=== PATIENT | female | born 1945 ===

== ENCOUNTER 2017-07-28 12:19 | Inpatient (IN) ==
[2017-07-28 13:14] LABS: Basophils % 0.5 % (0.0-0.8); Eosinophils # 0.1 10*3/uL (0.0-0.87); Eosinophils % 1.3 % (0.00-10.9); Hemoglobin 13.7 GM/DL (12.0-16.0); Immature Granulocytes % 0.3 %; Immature Granulocytes Absolute 0.02 #; Lymphocytes # 2.6 10*3/uL (1.4-4.0); Lymphocytes % 34.7 % (21.3-54.2); Mean Corpuscular HGB Conc 35.1 GM/DL (32-36); Mean Corpuscular Hemoglobin 30 PG (27-34); Mean Corpuscular Volume 86.1 FL (87-102); Mean Platelet Volume 10.9 FL (9.6-12.0); Monocytes # 0.5 10*3/uL (0.11-0.8); Monocytes % 6.2 % (1.7-12.7); Neutrophils # 4.3 10*3/uL (1.4-7.4); Platelet Count 208 T/CUMM (130-400); Red Blood Count 4.53 MC/CUMM (3.8-5.5); Red Cell Distribution Width 12.2 % (9.3-17.3); White Blood Count 7.6 T/CUMM (4-12)
[2017-07-28 13:23] LABS: PT Patient Result 10.2 SECS; Partial Thromboplastin Time < 21.0 SECS (0-40)
[2017-07-28 13:40] LABS: Alanine Aminotransferase 28 U/L (13-56); Albumin 2.9 G/DL (3.4-5.0); Alkaline Phosphatase 131 U/L (45-117); Aspartate Amino Transferase 27 U/L (0-37); Blood Urea Nitrogen 43 MG/DL (7-18); Calcium 9.1 MG/DL (8.5-10.1); Glucose 182 MG/DL (74-106); Osmolality,Calculated 298.1 MOS/KG (273-304); Potassium 3.5 MMOL/L (3.5-5.1); Sodium 142 MMOL/L (136-145); Total Protein 7.6 G/DL (6.4-8.3)
[2017-07-28 14:09] LABS: Apearance,Urine CLOUDY (Clear); Bacteria,Urine Many /HPF (Few); Bilirubin,Urine Negative (Negative); Blood, Urine Small mg/dL (Negative); Glucose,Urine (UA) Negative (Negative); Ketones,Urine Negative (Negative); Mucus,Urine Occasional /LPF (Occasional); Nitrite,Urine Negative (Negative); Protein,Urine 100 MG/DL; RBC,Urine 5 /HPF (0-4); Urine Color Yellow (Yellow); Urine Specific Gravity 1.016 (1.001-1.035); WBC,Urine 67 /HPF (0-6)
[2017-07-28 14:15] LABS: Barbiturates Screen,Urine Negative (Negative); Benzodiazepines Screen,Urine Negative (Negative); Cannabinoid Screen,Urine Negative (Negative); Opiate Screen,Urine Negative (Negative); Phencyclidine Screen,Urine Negative (Negative)
[2017-07-28] MEDS ORDERED: hydrALAZINE 20 MG/1 ML VIAL IV PRN (15:08)
[2017-07-28] MEDS ORDERED: ACETAMINOPHEN 325 MG TABLET PO PRN (15:09)
[2017-07-28] MEDS ORDERED: ONDANSETRON 4 MG/2 ML VIAL IV PRN (15:09)
[2017-07-28] MEDS ORDERED: MORPHINE 4 MG/1 ML VIAL IV PRN (15:09)
[2017-07-28] MEDS ORDERED: diphenhydrAMINE CAP 25 MG CAPSULE PO PRN (15:09)
[2017-07-28] MEDS ORDERED: GLUCAGON 1 MG VIAL IM PRN (15:16)
[2017-07-28] MEDS ORDERED: DEXTROSE 50% 25 GM/50 ML VIAL IV PRN (15:16)
[2017-07-28] MEDS: SODIUM CHLORIDE 0.9% 1,000 ML IV SCH (17:00)
[2017-07-28] MEDS: ASPIRIN 325 MG TABLET PO SCH (17:10)
[2017-07-28] MEDS: PANTOPRAZOLE 40 MG TABLET PO SCH (17:10)
[2017-07-28] MEDS: cefTRIAXone 1,000 MG in SYRINGE 1 EACH IV SCH (17:40)
[2017-07-28] MEDS: INSULIN LISPRO 100 UNIT/ML SUBCUT SCH (17:51)
[2017-07-28] MEDS: amLODIPine 5 MG TABLET PO SCH (17:51)
[2017-07-28] MEDS: ENOXAPARIN 30 MG/0.3 ML SYRINGE SUBCUT SCH (17:51)
[2017-07-29] MEDS: SODIUM CHLORIDE 0.9% 1,000 ML IV SCH ×3 (00:55→18:48)
[2017-07-29 05:47] LABS: Basophils # 0.1 10*3/uL (0.0-0.2); Basophils % 0.8 % (0.0-0.8); Eosinophils # 0.2 10*3/uL (0.0-0.87); Eosinophils % 2.3 % (0.00-10.9); Hemoglobin 12.7 GM/DL (12.0-16.0); Immature Granulocytes % 0.2 %; Immature Granulocytes Absolute 0.01 #; Lymphocytes # 2.7 10*3/uL (1.4-4.0); Lymphocytes % 40.8 % (21.3-54.2); Mean Corpuscular HGB Conc 34.3 GM/DL (32-36); Mean Corpuscular Hemoglobin 30 PG (27-34); Mean Corpuscular Volume 87.7 FL (87-102); Monocytes # 0.6 10*3/uL (0.11-0.8); Monocytes % 8.7 % (1.7-12.7); Neutrophils # 3.1 10*3/uL (1.4-7.4); Neutrophils % 47.2 % (38.7-73.9); Platelet Count 205 T/CUMM (130-400); Red Blood Count 4.22 MC/CUMM (3.8-5.5); Red Cell Distribution Width 12.1 % (9.3-17.3); White Blood Count 6.5 T/CUMM (4-12)
[2017-07-29 06:27] LABS: Albumin 2.7 G/DL (3.4-5.0); Bilirubin,Total 1.1 MG/DL (0.2-1.0); Calcium 8.1 MG/DL (8.5-10.1); Osmolality,Calculated 298.7 MOS/KG (273-304); Potassium 3.4 MMOL/L (3.5-5.1); Risk Ratio 2.27; Thyroid Stimulating Hormone 4.97 uIU/ml (0.358-3.74); Total Protein 6.6 G/DL (6.4-8.3)
[2017-07-29] MEDS: INSULIN LISPRO 100 UNIT/ML SUBCUT SCH ×2 (08:38→17:15)
[2017-07-29] MEDS: amLODIPine 5 MG TABLET PO SCH (08:38)
[2017-07-29] MEDS: ASPIRIN 325 MG TABLET PO SCH (08:38)
[2017-07-29] MEDS: PANTOPRAZOLE 40 MG TABLET PO SCH (08:39)
[2017-07-29] MEDS: ENOXAPARIN 30 MG/0.3 ML SYRINGE SUBCUT SCH (20:39)
[2017-07-29] MEDS: cefTRIAXone 1,000 MG in SYRINGE 1 EACH IV SCH (20:40)
[2017-07-30] MEDS: SODIUM CHLORIDE 0.9% 1,000 ML IV SCH ×2 (02:15→10:40)
[2017-07-30] MEDS: INSULIN LISPRO 100 UNIT/ML SUBCUT SCH ×2 (08:54→16:56)
[2017-07-30] MEDS: PANTOPRAZOLE 40 MG TABLET PO SCH (08:55)
[2017-07-30] MEDS: amLODIPine 5 MG TABLET PO SCH (08:55)
[2017-07-30] MEDS: ASPIRIN 325 MG TABLET PO SCH (08:55)
[2017-07-30] MEDS: APIXABAN 5 MG TABLET PO SCH ×2 (09:03→20:53)
[2017-07-30] MEDS: ATORVASTATIN 20 MG TABLET PO SCH (20:53)
[2017-07-30] MEDS: cefTRIAXone 1,000 MG in SYRINGE 1 EACH IV SCH (20:53)
[2017-07-31 05:07] LABS: Basophils # 0.1 10*3/uL (0.0-0.2); Basophils % 0.7 % (0.0-0.8); Eosinophils # 0.2 10*3/uL (0.0-0.87); Eosinophils % 3.1 % (0.00-10.9); Hematocrit 33.8 VOL% (35.7-47.0); Hemoglobin 11.4 GM/DL (12.0-16.0); Immature Granulocytes % 0.1 %; Immature Granulocytes Absolute 0.01 #; Lymphocytes # 3.2 10*3/uL (1.4-4.0); Lymphocytes % 44.2 % (21.3-54.2); Mean Corpuscular HGB Conc 33.7 GM/DL (32-36); Mean Corpuscular Hemoglobin 30 PG (27-34); Mean Platelet Volume 11.5 FL (9.6-12.0); Monocytes # 0.6 10*3/uL (0.11-0.8); Monocytes % 7.8 % (1.7-12.7); Neutrophils # 3.2 10*3/uL (1.4-7.4); Neutrophils % 44.1 % (38.7-73.9); Platelet Count 181 T/CUMM (130-400); Red Blood Count 3.84 MC/CUMM (3.8-5.5); Red Cell Distribution Width 12.1 % (9.3-17.3); White Blood Count 7.2 T/CUMM (4-12)
[2017-07-31 05:32] LABS: Calcium 7.8 MG/DL (8.5-10.1); Osmolality,Calculated 297.8 MOS/KG (273-304); Potassium 3.5 MMOL/L (3.5-5.1)
[2017-07-31] MEDS: PANTOPRAZOLE 40 MG TABLET PO SCH (09:42)
[2017-07-31] MEDS: amLODIPine 10 MG TABLET PO SCH (09:42)
[2017-07-31] MEDS: INSULIN LISPRO 100 UNIT/ML SUBCUT SCH ×4 (09:42→21:12)
[2017-07-31] MEDS: APIXABAN 5 MG TABLET PO SCH ×2 (09:42→21:11)
[2017-07-31] MEDS: LISINOPRIL 10 MG TABLET PO SCH (15:58)
[2017-07-31] MEDS: AMOXICILLIN/CLAV 875 MG TABLET PO SCH (21:11)
[2017-07-31] MEDS: ATORVASTATIN 20 MG TABLET PO SCH (21:12)
[2017-08-01] MEDS: PANTOPRAZOLE 40 MG TABLET PO SCH (08:37)
[2017-08-01] MEDS: amLODIPine 10 MG TABLET PO SCH (08:37)
[2017-08-01] MEDS: LISINOPRIL 10 MG TABLET PO SCH (08:37)
[2017-08-01] MEDS: APIXABAN 5 MG TABLET PO SCH (08:37)
[2017-08-01] MEDS: AMOXICILLIN/CLAV 875 MG TABLET PO SCH (08:37)
[2017-08-01] MEDS: INSULIN LISPRO 100 UNIT/ML SUBCUT SCH ×2 (08:37→12:12)
[2017-08-01 16:06] VITALS: BP 148/75
== END 2017-08-01 16:50 | disposition home health service (06) | DRG 65 ==
LOC: EDUNIT# → EDBD → N.ED 12:19 → N.EDINP 14:01 → N.2E 16:07
PROVIDERS: ADMIT Internal Medicine; ATTEND Internal Medicine

== ENCOUNTER 2018-07-03 12:48 | Inpatient (IN) ==
[2018-07-03] MEDS ORDERED: SODIUM CHLORIDE 0.9% 500 ML IV STA ×2 (13:05→14:50)
[2018-07-03 13:38] LABS: Basophils % 0.6 % (0.0-0.8); Eosinophils # 0.1 10*3/uL (0.0-0.87); Eosinophils % 1.8 % (0.00-10.9); Hematocrit 37.2 VOL% (35.7-47.0); Immature Granulocytes % 0.3 %; Immature Granulocytes Absolute 0.02 #; Lymphocytes # 1.8 10*3/uL (1.4-4.0); Lymphocytes % 24.5 % (21.3-54.2); Mean Corpuscular HGB Conc 32.3 GM/DL (32-36); Mean Corpuscular Volume 90.7 FL (87-102); Monocytes % 7.8 % (1.7-12.7); Platelet Count 222 T/CUMM (130-400); Red Cell Distribution Width 13.1 % (9.3-17.3); White Blood Count 7.2 T/CUMM (4-12)
[2018-07-03] MEDS ORDERED: DILTIAZEM 50 MG/10 ML VIAL IV STA (13:47)
[2018-07-03 13:53] LABS: INR 0.9; PT Patient Result 10.2 SECS; Partial Thromboplastin Time 23.2 SECS (0-40)
[2018-07-03] MEDS ORDERED: DILTIAZEM INJ 100 MG in SODIUM CHLORIDE 0.9% 100 ML IV SCH (14:00)
[2018-07-03 14:07] LABS: Alanine Aminotransferase 25 U/L (13-56); Albumin 3.1 G/DL (3.4-5.0); Alkaline Phosphatase 123 U/L (45-117); Aspartate Amino Transferase 25 U/L (0-37); Blood Urea Nitrogen 21 MG/DL (7-18); Calcium 8.5 MG/DL (8.5-10.1); Glucose 89 MG/DL (74-106); Osmolality,Calculated 291.6 MOS/KG (273-304); Total Protein 6.6 G/DL (6.4-8.3)
[2018-07-03] MEDS ORDERED: PROMETHAZINE 25 MG/1 ML VIAL IM PRN (14:47)
[2018-07-03] MEDS ORDERED: ONDANSETRON 4 MG/2 ML VIAL IV PRN (14:47)
[2018-07-03] MEDS ORDERED: ACETAMINOPHEN 325 MG TABLET PO PRN (14:47)
[2018-07-03] MEDS ORDERED: SODIUM CHLORIDE 0.9% 1,000 ML IV STA (14:50)
[2018-07-03] MEDS ORDERED: LACTULOSE 20 GM/30 ML UDCUP PO PRN (14:54)
[2018-07-03 14:57] LABS: Apearance,Urine CLEAR (Clear); Bacteria,Urine Occasional /HPF (Few); Bilirubin,Urine Negative (Negative); Blood, Urine Negative (Negative); Glucose,Urine (UA) Negative (Negative); Hyaline Casts,Urine 11 /LPF (0-3); Ketones,Urine Negative (Negative); Mucus,Urine Occasional /LPF (Occasional); Nitrite,Urine Negative (Negative); Protein,Urine 100 MG/DL; RBC,Urine 9 /HPF (0-4); Urine Color Yellow (Yellow); Urine Specific Gravity 1.016 (1.001-1.035); WBC,Urine 5 /HPF (0-6)
[2018-07-03] MEDS ORDERED: LACTULOSE 20 GM/30 ML UDCUP PO SCH (15:00)
[2018-07-03] MEDS ORDERED: SODIUM CHLORIDE 0.9% 1,000 ML IV SCH (15:00)
[2018-07-03] MEDS ORDERED: METOPROLOL TARTRATE 25 MG TABLET PO STA (15:03)
[2018-07-03] MEDS: SODIUM CHLORIDE 0.45% 1,000 ML IV SCH (15:43)
[2018-07-03] MEDS: PANTOPRAZOLE 40 MG TABLET PO SCH (15:43)
[2018-07-03] MEDS: DILTIAZEM 30 MG TABLET PO SCH ×2 (16:12→18:21)
[2018-07-03 20:24] LABS: Calcium 7.7 MG/DL (8.5-10.1); Osmolality,Calculated 302.4 MOS/KG (273-304)
[2018-07-03] MEDS ORDERED: METOPROLOL TARTRATE 25 MG TABLET PO SCH (21:00)
[2018-07-03] MEDS ORDERED: APIXABAN 5 MG TABLET PO SCH (21:00)
[2018-07-03] MEDS: LACTULOSE 20 GM/30 ML UDCUP PO SCH (21:05)
[2018-07-03] MEDS: APIXABAN 5 MG TABLET PO SCH (21:06)
[2018-07-04 04:30] LABS: Basophils % 0.2 % (0.0-0.8); Hematocrit 33.1 VOL% (35.7-47.0); Hemoglobin 10.6 GM/DL (12.0-16.0); Immature Granulocytes % 0.4 %; Immature Granulocytes Absolute 0.05 #; Mean Platelet Volume 11.3 FL (9.6-12.0); Monocytes % 8.7 % (1.7-12.7); Neutrophils % 83.7 % (38.7-73.9); Platelet Count 223 T/CUMM (130-400); Red Blood Count 3.56 MC/CUMM (3.8-5.5); Red Cell Distribution Width 13.6 % (9.3-17.3); White Blood Count 13.6 T/CUMM (4-12)
[2018-07-04 04:52] LABS: Albumin 2.7 G/DL (3.4-5.0); Bilirubin,Total 0.5 MG/DL (0.2-1.0); Calcium 7.8 MG/DL (8.5-10.1); Osmolality,Calculated 309.8 MOS/KG (273-304); Total Protein 6.1 G/DL (6.4-8.3)
[2018-07-04] MEDS ORDERED: SODIUM CHLORIDE 0.45% 1,000 ML IV SCH ×2 (06:48→06:50)
[2018-07-04] MEDS: metroNIDAZOLE 500 MG TABLET PO SCH ×3 (09:39→21:47)
[2018-07-04] MEDS: PANTOPRAZOLE 40 MG TABLET PO SCH (09:39)
[2018-07-04] MEDS: SODIUM CHLORIDE 0.9% 1,000 ML IV SCH ×2 (09:39→21:46)
[2018-07-04] MEDS: APIXABAN 5 MG TABLET PO SCH ×2 (09:39→21:46)
[2018-07-04] MEDS: INSULIN GLARGINE 100 UNIT/ML SUBCUT SCH (09:41)
[2018-07-04] MEDS: LACTULOSE 20 GM/30 ML UDCUP PO SCH (09:42)
[2018-07-04] MEDS: SODIUM CHLORIDE 0.45% 1,000 ML IV SCH (09:43)
[2018-07-04] MEDS ORDERED: GLUCAGON 1 MG VIAL IM PRN (10:05)
[2018-07-04] MEDS ORDERED: DEXTROSE 50% 25 GM/50 ML SYRINGE IV PRN (10:05)
[2018-07-04] MEDS: INSULIN REGULAR 100 UNIT/ML SUBCUT SCH ×3 (12:17→21:47)
[2018-07-04] MEDS: ASCORBIC ACID 500 MG TABLET PO SCH (21:46)
[2018-07-05] MEDS: metroNIDAZOLE 500 MG TABLET PO SCH ×2 (05:41→16:17)
[2018-07-05] MEDS: SODIUM CHLORIDE 0.9% 1,000 ML IV SCH ×3 (05:42→16:19)
[2018-07-05 08:33] LABS: Basophils % 0.6 % (0.0-0.8); Eosinophils # 0.3 10*3/uL (0.0-0.87); Eosinophils % 4.3 % (0.00-10.9); Hematocrit 30.3 VOL% (35.7-47.0); Hemoglobin 9.6 GM/DL (12.0-16.0); Immature Granulocytes % 0.4 %; Immature Granulocytes Absolute 0.03 #; Lymphocytes # 2.7 10*3/uL (1.4-4.0); Lymphocytes % 38.1 % (21.3-54.2); Mean Corpuscular HGB Conc 31.7 GM/DL (32-36); Mean Corpuscular Volume 93.8 FL (87-102); Mean Platelet Volume 10.9 FL (9.6-12.0); Monocytes % 8.8 % (1.7-12.7); Neutrophils % 47.8 % (38.7-73.9); Platelet Count 159 T/CUMM (130-400); Red Blood Count 3.23 MC/CUMM (3.8-5.5); Red Cell Distribution Width 13.7 % (9.3-17.3)
[2018-07-05 08:59] LABS: Calcium 7.9 MG/DL (8.5-10.1); Osmolality,Calculated 291.6 MOS/KG (273-304)
[2018-07-05] MEDS: PANTOPRAZOLE 40 MG TABLET PO SCH (09:47)
[2018-07-05] MEDS: APIXABAN 5 MG TABLET PO SCH (09:47)
[2018-07-05] MEDS: ASCORBIC ACID 500 MG TABLET PO SCH (09:47)
[2018-07-05] MEDS: INSULIN GLARGINE 100 UNIT/ML SUBCUT SCH (09:48)
[2018-07-05] MEDS: INSULIN REGULAR 100 UNIT/ML SUBCUT SCH ×2 (09:50→12:30)
[2018-07-05 11:36] VITALS: BP 160/85
[2018-07-06] MEDS ORDERED: METOPROLOL TARTRATE 25 MG TABLET PO SCH ×2 (09:00)
== END 2018-07-05 16:00 | disposition home or self-care (01) | DRG 308 ==
LOC: EDUNIT# → EDBD → N.ED 12:48 → N.EDINP 14:47 → N.TELEN 16:09 → N.ICU 19:16 → N.TELES 07-04 11:48
PROVIDERS: ADMIT Emergency Medicine; ATTEND Emergency Medicine

== ENCOUNTER 2019-02-11 13:39 | Inpatient (IN) ==
[2019-02-11 14:28] LABS: Apearance,Urine CLOUDY (Clear); Bacteria,Urine Many /HPF (Few); Bilirubin,Urine Negative (Negative); Blood, Urine Large mg/dL (Negative); Glucose,Urine (UA) 50 mg/dL (Negative); Ketones,Urine Negative (Negative); Nitrite,Urine Negative (Negative); Protein,Urine >=500 MG/DL; RBC,Urine 68 /HPF (0-4); Squamous Epithelial Cell,Urine Occasional /HPF (0-10); Urine Color Yellow (Yellow); Urine Specific Gravity 1.013 (1.001-1.035); WBC,Urine 1420 /HPF (0-6)
[2019-02-11 14:45] LABS: Basophils # 0.1 10*3/uL (0.0-0.2); Basophils % 0.2 % (0.0-0.8); Hemoglobin 11.5 GM/DL (12.0-16.0); Immature Granulocytes % 0.7 %; Immature Granulocytes Absolute 0.19 #; Lymphocytes # 1.2 10*3/uL (1.4-4.0); Lymphocytes % 4.4 % (21.3-54.2); Mean Corpuscular HGB Conc 32.9 GM/DL (32-36); Mean Corpuscular Volume 89.3 FL (87-102); Mean Platelet Volume 10.6 FL (9.6-12.0); Neutrophils % 91.7 % (38.7-73.9); Platelet Count 212 T/CUMM (130-400); Red Blood Count 3.92 MC/CUMM (3.8-5.5); Red Cell Distribution Width 13.5 % (9.3-17.3); White Blood Count 26.2 T/CUMM (4-12)
[2019-02-11] MEDS ORDERED: LACTATED RINGERS 1,000 ML IV ONE (14:48)
[2019-02-11] MEDS ORDERED: cefTRIAXone 250 MG VIAL IV STA (14:49)
[2019-02-11 14:55] LABS: INR 1.1; PT Patient Result 11.7 SECS (9.6-12.2); Partial Thromboplastin Time 26.4 SECS (20.8-36.0)
[2019-02-11 15:05] LABS: Albumin 2.1 G/DL (3.4-5.0); Bilirubin,Total 0.6 MG/DL (0.2-1.0); Calcium 8.1 MG/DL (8.5-10.1); Osmolality,Calculated 309.7 MOS/KG (273-304); Total Protein 7.4 G/DL (6.4-8.3)
[2019-02-11] MEDS ORDERED: cefTRIAXone 1,000 MG VIAL ONE (15:05)
[2019-02-11] MEDS ORDERED: SODIUM CHLORIDE 0.9% 100 ML IV ONE (15:06)
[2019-02-11 15:31] LABS: Band Neutrophils 5 % (0-10); Lymphocytes 4 % (20-55); Platelet Estimate Normal; Segmented Neutrophils 88 % (50-85); Total Cells Counted 100
[2019-02-11] MEDS ORDERED: ACETAMINOPHEN 325 MG TABLET PO PRN (16:24)
[2019-02-11] MEDS ORDERED: DEXTROSE 10% 25 GM/250 ML BAG IV PRN (16:24)
[2019-02-11] MEDS ORDERED: BISACODYL 5 MG TABLET PO PRN (16:24)
[2019-02-11] MEDS ORDERED: GLUCAGON 1 MG VIAL IM PRN (16:24)
[2019-02-11] MEDS ORDERED: DOCUSATE SODIUM 100 MG CAPSULE PO PRN (16:24)
[2019-02-11] MEDS ORDERED: cefTRIAXone 1,000 MG in SYRINGE 1 EACH IV SCH (17:00)
[2019-02-11] MEDS ORDERED: MAGNESIUM SULF RIDER 4 GM in PREMIX 1 EACH IV PRN (17:26)
[2019-02-11] MEDS ORDERED: MAGNESIUM SULF RIDER 2 GM in PREMIX 1 EACH IV PRN (17:26)
[2019-02-11] MEDS: INSULIN REGULAR 100 UNIT/ML SUBCUT SCH ×2 (17:30→20:51)
[2019-02-11] MEDS: SODIUM CHLOR 0.45% KCL 20 MEQ 20 MEQ/1,000 ML BAG IV SCH (18:35)
[2019-02-11] MEDS: ATORVASTATIN 20 MG TABLET PO SCH (20:48)
[2019-02-11] MEDS: CITALOPRAM 20 MG TABLET PO SCH (20:48)
[2019-02-11] MEDS: APIXABAN 5 MG TABLET PO SCH (20:48)
[2019-02-11] MEDS: ASCORBIC ACID 500 MG TABLET PO SCH (20:48)
[2019-02-11] MEDS: METOPROLOL TARTRATE 25 MG TABLET PO SCH (20:48)
[2019-02-12 04:20] LABS: Basophils % 0.2 % (0.0-0.8); Eosinophils % 0.2 % (0.00-10.9); Hematocrit 31.8 VOL% (35.7-47.0); Hemoglobin 10.5 GM/DL (12.0-16.0); Immature Granulocytes % 0.6 %; Immature Granulocytes Absolute 0.11 #; Lymphocytes # 0.8 10*3/uL (1.4-4.0); Lymphocytes % 4.7 % (21.3-54.2); Mean Corpuscular Volume 89.3 FL (87-102); Mean Platelet Volume 11.4 FL (9.6-12.0); Monocytes % 3.2 % (1.7-12.7); Neutrophils % 91.1 % (38.7-73.9); Platelet Count 183 T/CUMM (130-400); Red Blood Count 3.56 MC/CUMM (3.8-5.5); Red Cell Distribution Width 13.7 % (9.3-17.3); White Blood Count 16.9 T/CUMM (4-12)
[2019-02-12] MEDS: SODIUM CHLOR 0.45% KCL 20 MEQ 20 MEQ/1,000 ML BAG IV SCH ×3 (04:31→21:34)
[2019-02-12 04:38] LABS: Calcium 8.1 MG/DL (8.5-10.1); Osmolality,Calculated 288.3 MOS/KG (273-304)
[2019-02-12 04:41] LABS: Albumin 1.9 G/DL (3.4-5.0); Bilirubin,Total 0.4 MG/DL (0.2-1.0); Calcium 7.8 MG/DL (8.5-10.1); Total Protein 6.6 G/DL (6.4-8.3)
[2019-02-12 04:43] LABS: Lymphocytes 6 % (20-55); Segmented Neutrophils 88 % (50-85); Total Cells Counted 100
[2019-02-12 04:44] LABS: Hypochromasia 1+; Platelet Estimate Adequate
[2019-02-12] MEDS: INSULIN REGULAR 100 UNIT/ML SUBCUT SCH ×4 (07:42→23:22)
[2019-02-12] MEDS ORDERED: lisinopriL 10 MG TABLET PO SCH (09:00)
[2019-02-12] MEDS: ASCORBIC ACID 500 MG TABLET PO SCH ×2 (09:55→21:39)
[2019-02-12] MEDS: PANTOPRAZOLE 40 MG TABLET PO SCH (09:56)
[2019-02-12] MEDS: cefTRIAXone 2,000 MG in SYRINGE 1 EACH IV SCH (09:56)
[2019-02-12] MEDS: METOPROLOL TARTRATE 25 MG TABLET PO SCH ×2 (09:56→21:36)
[2019-02-12] MEDS: APIXABAN 5 MG TABLET PO SCH ×2 (09:56→21:36)
[2019-02-12] MEDS ORDERED: cefTRIAXone 1,000 MG VIAL IM SCH (10:00)
[2019-02-12] MEDS: CITALOPRAM 20 MG TABLET PO SCH (21:36)
[2019-02-12] MEDS: ATORVASTATIN 20 MG TABLET PO SCH (21:39)
[2019-02-13 04:49] LABS: Basophils % 0.3 % (0.0-0.8); Eosinophils # 0.1 10*3/uL (0.0-0.87); Eosinophils % 0.8 % (0.00-10.9); Hematocrit 30.2 VOL% (35.7-47.0); Hemoglobin 9.8 GM/DL (12.0-16.0); Immature Granulocytes % 0.7 %; Lymphocytes # 2.3 10*3/uL (1.4-4.0); Lymphocytes % 15.2 % (21.3-54.2); Mean Corpuscular HGB Conc 32.5 GM/DL (32-36); Mean Corpuscular Volume 90.7 FL (87-102); Mean Platelet Volume 11.7 FL (9.6-12.0); Monocytes % 5.2 % (1.7-12.7); Neutrophils % 77.8 % (38.7-73.9); Platelet Count 163 T/CUMM (130-400); Red Blood Count 3.33 MC/CUMM (3.8-5.5); Red Cell Distribution Width 13.6 % (9.3-17.3); White Blood Count 15.1 T/CUMM (4-12)
[2019-02-13 05:15] LABS: Calcium 7.5 MG/DL (8.5-10.1); Osmolality,Calculated 281.5 MOS/KG (273-304)
[2019-02-13] MEDS: SODIUM CHLOR 0.45% KCL 20 MEQ 20 MEQ/1,000 ML BAG IV SCH (07:12)
[2019-02-13] MEDS: INSULIN REGULAR 100 UNIT/ML SUBCUT SCH ×4 (07:30→21:14)
[2019-02-13] MEDS: ASCORBIC ACID 500 MG TABLET PO SCH ×2 (08:37→20:45)
[2019-02-13] MEDS: PANTOPRAZOLE 40 MG TABLET PO SCH (08:37)
[2019-02-13] MEDS: METOPROLOL TARTRATE 25 MG TABLET PO SCH ×2 (08:37→20:45)
[2019-02-13] MEDS: APIXABAN 5 MG TABLET PO SCH ×2 (08:37→20:46)
[2019-02-13] MEDS: cefTRIAXone 2,000 MG in SYRINGE 1 EACH IV SCH (09:41)
[2019-02-13] MEDS: SODIUM CHLORIDE 0.45% 1,000 ML IV SCH ×2 (10:45→23:57)
[2019-02-13] MEDS: ATORVASTATIN 20 MG TABLET PO SCH (20:45)
[2019-02-13] MEDS: CITALOPRAM 20 MG TABLET PO SCH (20:46)
[2019-02-14 05:45] LABS: Basophils # 0.1 10*3/uL (0.0-0.2); Basophils % 0.6 % (0.0-0.8); Eosinophils # 0.3 10*3/uL (0.0-0.87); Eosinophils % 2.8 % (0.00-10.9); Hematocrit 30.4 VOL% (35.7-47.0); Immature Granulocytes % 1.4 %; Immature Granulocytes Absolute 0.16 #; Lymphocytes # 2.1 10*3/uL (1.4-4.0); Lymphocytes % 18.2 % (21.3-54.2); Mean Corpuscular HGB Conc 32.9 GM/DL (32-36); Mean Corpuscular Volume 89.1 FL (87-102); Mean Platelet Volume 11.8 FL (9.6-12.0); Monocytes % 8.1 % (1.7-12.7); Neutrophils % 68.9 % (38.7-73.9); Platelet Count 173 T/CUMM (130-400); Red Blood Count 3.41 MC/CUMM (3.8-5.5); Red Cell Distribution Width 13.3 % (9.3-17.3); White Blood Count 11.5 T/CUMM (4-12)
[2019-02-14 06:02] LABS: Calcium 7.6 MG/DL (8.5-10.1); Osmolality,Calculated 290.8 MOS/KG (273-304)
[2019-02-14] MEDS: INSULIN REGULAR 100 UNIT/ML SUBCUT SCH ×2 (08:46→12:21)
[2019-02-14] MEDS ORDERED: amLODIPine 5 MG TABLET PO SCH (09:00)
[2019-02-14] MEDS: cefTRIAXone 2,000 MG in SYRINGE 1 EACH IV SCH (09:56)
[2019-02-14] MEDS: APIXABAN 5 MG TABLET PO SCH (09:57)
[2019-02-14] MEDS: PANTOPRAZOLE 40 MG TABLET PO SCH (09:57)
[2019-02-14] MEDS: METOPROLOL TARTRATE 25 MG TABLET PO SCH (09:57)
[2019-02-14] MEDS: ASCORBIC ACID 500 MG TABLET PO SCH (09:57)
[2019-02-14 12:12] VITALS: BP 157/73
[2019-02-14] MEDS: SODIUM CHLORIDE 0.45% 1,000 ML IV SCH (13:43)
== END 2019-02-14 14:54 | disposition home health service (06) | DRG 871 ==
LOC: EDBD → EDUNIT# → N.ED 13:39 → SUATTDRO 16:24 → N.EDINP 16:24 → N.5E 17:02
PROVIDERS: ADMIT Phlebology; ATTEND Internal Medicine